=== PATIENT | female | born 1970 | race Caucasian/White ===

== ENCOUNTER 2018-12-05 15:29 | Emergency (ER) | payer BC ==
[~2018-12-05] VITALS: Ht 162.6 cm; Wt 72.6 kg
--- NOTE | 2018-12-05 16:09 | NUR ---
Dr Chaves seen and examined the pt.
[2018-12-05] MEDS ORDERED: BENZONATATE 100 MG CAPSULE ONE (16:15)
[2018-12-05] MEDS ORDERED: BENZONATATE 100 MG CAPSULE PO ONE (16:15)
--- NOTE | 2018-12-05 17:08 | NUR ---
Patient discharged to home in stable conditon. Written and verbal after care instructions given. Patient verbalizes understanding of instructions.
[2018-12-05 17:09] VITALS: BP 144/87
== END 2018-12-05 17:11 | disposition home or self-care (01) ==
LOC: ER 15:29
DX: J20.9 Acute bronchitis, unspecified (principal); H92.03 Otalgia, bilateral; J45.909 Unspecified asthma, uncomplicated; Z88.2 Allergy status to sulfonamides; Z88.5 Allergy status to narcotic agent
CPT/HCPCS: 71045; A4663